=== PATIENT | male | born 2005 | race Caucasian/White ===

== ENCOUNTER 2024-10-27 08:59 | Inpatient (IN) ==
[2024-10-27 10:01] LABS: Hematocrit (blood only) 44.6 % (42.0-52.0); Hemoglobin 15.2 g/dl (14.0-18.0); Immature Granulocytes # (auto) 0.06 K/uL (0.01-0.20); Immature Granulocytes % (auto) 0.5 %; Mean Corpuscular Hemoglobin 30.3 pg (25.0-34.0); Mean Corpuscular Volume 88.8 fL (80.0-100.0); Platelet Count 231 K/uL (130-400); RDW Standard Deviation 42.7 fL (36.4-46.3); Red Blood Count 5.02 M/uL (4.70-6.10); White Blood Count 13.07 K/ul (4.8-10.8)
[2024-10-27] MEDS: SODIUM CHLORIDE 0.9% 1,000 ML IV ONE (10:07)
[2024-10-27] MEDS: ACETAMINOPHEN 1,000 MG/100 ML VIAL IV STA (10:07)
[2024-10-27 10:23] LABS: Alanine Aminotransferase 34.0 U/L (7-52); Albumin Globulin Ratio 1.3 (0.9-2); Alkaline Phosphatase 83.0 U/L (34-104); Anion Gap 6.0 (3-11); Bilirubin,Total 0.8 mg/dl (0.2-1.0); Blood Urea Nitrogen 27.0 mg/dl (6-23); Calcium 9.6 mg/dl (8.6-10.3); Carbon Dioxide 30.0 mmol/L (21-32); Chloride 103.0 mmol/L (98-107); Creatinine Clr Calc Pharmacy 148.4 ml/min; Globulin 3.4 gm/dl (2.5-4.0); Glucose 93.0 mg/dl (70-99(Fasting)); Potassium 4.0 mmol/L (3.5-5.1); Sodium 139.0 mmol/L (136-145); Total Protein 7.7 gm/dl (6.0-8.3)
[2024-10-27] MEDS: OPTIRAY 320 100ml IV ONE (10:27)
--- NOTE | 2024-10-27 10:45 | Emergency Department Note ---
Impression & Plan Peritonsillar abscess ED Provider Note CHIEF COMPLAINT: Sore throat HISTORY OF PRESENTING ILLNESS: Patient is a 19-year-old male presents the emergency department today for complaints of a sore throat that started 2 weeks ago. He was seen at [facility] and put on amoxicillin 500 mg twice daily for 10 days on 10/24/2024. He reports no improvement since starting the antibiotic. He was then seen this morning at [facility] again this morning and was referred here to the emergency department due to having tonsillar hypertrophy and a muffled voice. He denies any breathing difficulties or the feeling of his throat swelling shut. He did take Tylenol last night for the pain but has not taken anything this morning. He denies chest pain, sob, breathing difficulties, abdominal pain, headache, fevers/chills, blood in stool or urine, any recent illness, or any recent travel. REVIEW OF SYSTEMS: See HPI for pertinent positives and pertinent negatives. ALLERGIES: See below MEDICATIONS: See below PAST MEDICAL HISTORY: See below PHYSICAL EXAM: VITALS: Vitals are noted on the nurse's note and reviewed by myself. GENERAL: Non toxic, in no acute distress, non-diaphoretic. SKIN: Capillary refill <2 sec. EYES: PERRLA. EOMI. Conjunctivae without injection, sclerae without icterus. NOSE: Patent without discharge. MOUTH: Erythema is present in the pharynx. Plus or tonsillar hypertrophy on the right on the left. Mucous membranes moist. Uvula midline. Airway patent. Muffled voice is present. No drooling. Good control of secretions. NECK: Positive right anterior cervical adenopathy. No tenderness on palpation. Supple without nuchal rigidity. HEART: Regular rate and rhythm without murmurs gallops or rubs. LUNGS: Clear to auscultation bilaterally without wheezes, rales or rhonchi. No retractions or accessory muscle use. ABDOMEN: Positive bowel sounds x 4. Normal tympanic percussion. Soft, nontender to palpation. NEURO: Patient was alert and oriented. No focal neurological deficits. DIFFERENTIAL DIAGNOSIS: Peritonsillar abscess, pharyngeal edema, strep throat, sepsis, among others. ED COURSE AND MEDICAL DECISION MAKING: HISTORY FROM INDEPENDENT HISTORIAN: History was provided by the patient. MONITOR: Continuous cardiac catheterization technician: Order was placed for continuous cardiac catheterization technician. Patient was placed on the cardiac catheterization technician and continuous pulse ox. Patient was noted to be in normal sinus rhythm at an initial rate of 60 bpm per my interpretation. INTERPRETATION OF LABS: I interpreted the labs with full lab results as below in the lab section of this note. Laboratory results pertinent to the emergent complaint are discussed in the MDM section below. The patient was advised to follow up with their PCP and/or specialist(s) for further outpatient monitoring and management of any abnormal results. INTERPRETATION OF IMAGING: Imaging studies were interpreted by myself and read by radiology as per the imaging section of this note. The patient was advised to follow up with their PCP and/or specialist(s) for further outpatient management of any non-emergent abnormal findings. CHRONIC MEDICAL/SOCIAL CONDITIONS AFFECTING CARE: No social concerns were identified as barriers to patients care. EXTERNAL RECORDS REVIEWED: Patient's express care visits from 10/24/2024 and 10/27/2024. Both related to the sore throat and peritonsillar abscess. ESCALATION OF CARE CONSIDERED: I considered admission on this patient due to failure of outpatient antibiotics and 2.5 cm peritonsillar abscess likely needing drained. CONSULTATIONS: I had a meaningful discussion about this patient with Dr. Sherwood who agrees with my assessment and the treatment plan. I also consulted with Dr. Moon for drainage of the peritonsillar abscess. He will plan to see the patient later this afternoon. I did speak with pharmacist Kusum for antibiotic use of Unasyn versus clindamycin. I consulted with Vanessa Francisco for admission to the hospital under Dr. Rosas and the patient was accepted. SUMMARY: I examined the patient for complaints of sore throat and possible peritonsillar abscess on the right. A physical exam and history were performed. Nursing notes, EMR, and medication list were personally reviewed. CBC showed leukocytosis with a white blood cell count of 13.7. No anemia or thrombocytopenia. CMP showed no emergent findings but a BUN of 27. CT of the soft tissues of the neck showed a 2.5 cm ill-defined echo at glottic mass within the right peritonsillar region with mild mass effect on the adjacent oropharynx. The findings are consistent with a clinically suspected right peritonsillar abscess. The patient was given 1 L normal saline here in the emergency department. He was also given 1 g of Tylenol IV with minor improvement in pain and discomfort. He was given 300 mg of clindamycin IV. He was then given Toradol 30 mg IV with improvement in pain and discomfort. I did consult with Dr. Moon who will plan to see the patient this afternoon. The patient was then accepted for admission by Dr. Rosas. DIAGNOSIS: Peritonsillar abscess right-sided TREATMENT PLAN/DISCHARGE INSTRUCTIONS: Admit to hospitalist services. Past Med/Surg History Problem List (Updated 10/27/24 @ 17:46 by LETTY Mike) Peritonsillar abscess (Acute) Lip laceration Social History Smoking Status: Never smoker Second Hand Exposure: No; Do You Dip or Chew Tobacco: No; Tobacco Cessation Education Requested by Patient: No Hx Alcohol Use: No Hx Substance Use: No Preferred Language: Malian Communication Ability: Effective Separator Operator Required: No Beliefs That Will Affect Care: None Current Living Situation: Other Other Information That Helps Us Care for You: No Feels Safe at Home: Yes Safety Concerns: Afraid for Self Assistive Devices: None Allergies Allergies Allergy/AdvReac Type Severity Reaction Status Date / Time No Known Allergies Allergy Verified 10/27/24 08:36 Home Meds Home Medications Medication Instructions Recorded Confirmed No Known Home Medications 10/24/24 10/27/24 Results & Data (ED) Vital Signs Vital Signs - 24 hr 10/27/24 09:17 10/27/24 11:19 Temperature 36.2 C L Temperature Source Temporal Artery Scan Pulse Rate 58 L Pulse Rate [Right Finger] 45 L Respiratory Rate 18 14 Respiratory Effort / Characteristics Non-Labored Spontaneous Respiratory Depth Normal Respiratory Pattern Regular Blood Pressure 118/58 L Blood Pressure [Left Arm] 116/55 L Blood Pressure Mean 78 Blood Pressure Mean [Left Arm] 75 Pulse Oximetry 100 99 Oxygen Delivery Method Room Air Room Air Sepsis New/Unexplained Change in Mental Status No Sepsis Action Taken by Nursing No Action Required Laboratory Data 10/27/24 09:39 10/27/24 09:39 Lab Results 10/27/24 Range/Units 09:39 WBC 13.07 H (4.8-10.8) K/ul RBC 5.02 (4.70-6.10) M/uL Hgb 15.2 (14.0-18.0) g/dl Hct 44.6 (42.0-52.0) % MCV 88.8 (80.0-100.0) fL MCH 30.3 (25.0-34.0) pg MCHC 34.1 (32.0-36.0) g/dL RDW Std Deviation 42.7 (36.4-46.3) fL RDW Coeff of Cheryl 13.2 (11.5-14.5) % Plt Count 231 (130-400) K/uL MPV 9.7 (9.4-12.4) fL Immature Gran % (Auto) 0.5 % Neut % (Auto) 78.5 % Lymph % (Auto) 13.0 % [place] % (Auto) 7.3 % Eos % (Auto) 0.5 % Baso % (Auto) 0.2 % Neut # (Auto) 10.25 H (1.40-6.50) K/uL Lymph # (Auto) 1.70 (1.20-3.40) K/uL [place] # (Auto) 0.96 H (0.11-0.59) K/uL Eos # (Auto) 0.07 (0.00-0.50) K/uL Baso # (Auto) 0.03 (0.00-0.20) K/uL Immature Gran # (Auto) 0.06 (0.01-0.20) K/uL Sodium 139 (136-145) mmol/L Potassium 4.0 (3.5-5.1) mmol/L Chloride 103 (98-107) mmol/L Carbon Dioxide 30 (21-32) mmol/L Anion Gap 6 (3-11) BUN 27 H (6-23) mg/dl Creatinine 0.89 (0.6-1.4) mg/dl Est Cr Clr Drug Dosing 148.4 ml/min eGFR 125.03 BUN/Creatinine Ratio 30.3 H (10-20) Glucose 93 (70-99(Fasting)) mg/dl Calcium 9.6 (8.6-10.3) mg/dl Total Bilirubin 0.8 (0.2-1.0) mg/dl AST 34 (13-39) U/L ALT 34 (7-52) U/L Alkaline Phosphatase 83 (34-104) U/L Total Protein 7.7 (6.0-8.3) gm/dl Albumin 4.3 (3.4-5.0) gm/dl Globulin 3.4 (2.5-4.0) gm/dl Albumin/Globulin Ratio 1.3 (0.9-2) Administered Medications Lactated Ringer's (Lr) 1,000 mls @ 80 mls/hr IV .[id number] CINTHIA Stop: 10/28/24 13:29 Last Admin: 10/27/24 12:56 Dose: 80 mls/hr Documented By: RADHA Ampicillin Sodium/Sulbactam Sodium (Unasyn) 3,000 mg in 100 mls @ 200 mls/hr IV Q6H CINTHIA Stop: 11/06/24 15:59 Last Infusion: 10/27/24 16:36 Dose: Infused Documented By: Admin: 10/27/24 16:00 Dose: 200 mls/hr Documented By: LISA Ketorolac Tromethamine (Ketorolac Tromethamine 15 Mg/Ml Vial) 10 mg IV Q6H PRN PRN Reason: Pain Stop: 11/01/24 13:44 Last Admin: 10/27/24 16:00 Dose: 10 mg Documented By: LISA Morphine Sulfate (Morphine Sulfate 2 Mg/Ml Carp) 2 mg IV Q6H PRN PRN Reason: Moderate Pain (Scale 4, 5, 6) Stop: 11/10/24 13:44 Last Admin: 10/27/24 15:29 Dose: 2 mg Documented By: BRIAN Discontinued Medications Acetaminophen (Ofirmev) 1,000 mg in 100 mls @ 400 mls/hr IV NOW STA Stop: 10/27/24 09:52 Last Infusion: 10/27/24 10:30 Dose: Infused Documented By: Admin: 10/27/24 10:07 Dose: 400 mls/hr Documented By: STORM Sodium Chloride (Nss) 1,000 mls @ 999 mls/hr IV .Q1H1M ONE Stop: 10/27/24 10:39 Last Infusion: 10/27/24 11:21 Dose: Infused Documented By: Admin: 10/27/24 10:07 Dose: 999 mls/hr Documented By: STORM Clindamycin Phosphate (Cleocin/D5w) 300 mg in 50 mls @ 100 mls/hr IV NOW ONE Stop: 10/27/24 11:28 Last Infusion: 10/27/24 11:57 Dose: Infused Documented By: Admin: 10/27/24 11:22 Dose: 100 mls/hr Documented By: RADHA Ioversol (Optiray 320 100ml) 94 ml IV ONCE ONE Stop: 10/27/24 10:28 Last Admin: 10/27/24 10:27 Dose: 94 ml Documented By: MAY Imaging Data Radiologist's Impression: Soft Tissue Neck CT 10/27/24 09:35 CT OF THE NECK WITH IV CONTRAST CLINICAL HISTORY: peritonsillar abscess COMPARISON STUDY: No previous studies for comparison. TECHNIQUE: Following IV administration of 94 mL of Optiray, helical axial images of the neck were obtained. Sagittal and coronal reconstructions were viewed. Automated exposure control was utilized for the study. A dose lowering technique was utilized adhering to the principles of ALARA. CT DOSE: 499.8 mGy.cm FINDINGS: The visualized portions of intracranial contents are unremarkable in appearance with the exception of a negative cisterna magna. Visualized portions lung apices are unremarkable. No thyroid abnormalities are visualized. Mildly prominent cervical lymph nodes are likely reactive. There is an ill-defined hypoechoic right peritonsillar mass measuring 2.5 cm in diameter. This is consistent with a peritonsillar abscess/phlegmon. There is mass effect on the adjacent airway. No focal cord abnormalities are visualized. The epiglottis appears normal. The prevertebral soft tissues are unremarkable in appearance. There are no findings to indicate jugular vein thrombosis. IMPRESSION: 2.5 cm ill-defined hypoechoic mass within the right peritonsillar region with mild mass effect on the adjacent oropharynx. The findings are consistent with the clinically suspected right peritonsillar abscess/phlegmon. ACT 112: Negative or not required by law. Electronically signed by: Wilbert Rose M.D. 10/27/2024 10:45 AM Discharge Plan Visit Data Chief Complaint: Throat Pain Stated Complaint: THROAT PAIN, REF BY [facility] ED Provider: Hi Sherwood ED Midlevel Provider: Tiffanie Barboza Discharge Problem: Peritonsillar abscess Patient Disposition: Admitted As Inpatient Condition: Good Discharge Instructions Interventions: ED Discharge Assessment Last Done: 10/27/24 15:39
[2024-10-27] MEDS: CLINDAMYCIN/D5W 300 MG/50 ML BAG IV ONE (11:22)
--- NOTE | 2024-10-27 12:02 | History & Physical Report ---
Date of Service October 27, 2024 Assessment & Plan (1) Peritonsillar abscess: Plan Patient is a 19-year-old male without a significant past medical history who presented secondary to right throat pain for 2 weeks found to have a right peritonsillar abscess. #right peritonsillar abscess - right peritonsillar abscess seen on soft tissue neck CT. Nonseptic at time of admissionmild leukocytosis WBC 13.07, VSS, afebrile. Group A strep positive on 10/24. Started on clindamycin in ED, will transition to Unasyn N.p.o. until eval by OMF surgery OMF surgery consulted Received 1L NSS bolus in ED, continue fluid resuscitation with LR at 80 mL/hour IV Tylenol as needed for pain, Toradol prn, morphine prn for pain unrelieved by #1 and #2 - zofran prn Trend CBC VTE ppx: SCDs, low risk Dispo: med surg - possible dc 10/28 Admission and Anticipated Discharge Date Admission Date: 10/27/24 History of Present Illness Chief Complaint: throat pain Primary Care Provider: [facility] Patient is a 19-year-old male without a significant past medical history who presented secondary to right throat pain for 2 weeks found to have a right peritonsillar abscess. Patient seen at bedside. He stated he has had throat pain for a week but it has been more severe over the weekend. He went to [facility] urgent care on 10/24 and tested positive for strep and was placed back on amoxicillin. They noted that he was having difficulty swallowing, muffled voice, and difficulty opening his mouth. He has been able to tolerate p.o. intake until today 10/27. He denies any fevers, chills, nausea, vomiting, chest pain, shortness of breath, drainage from abscess. He denies nicotine use. He socially drinks alcohol. He denies any significant past medical history including asthma or cardiac abnormalities. He is on no home medications. He wishes to be full code. He denies any allergies to antibiotics Allergies Allergy/AdvReac Type Severity Reaction Status Date / Time No Known Allergies Allergy Verified 10/27/24 08:36 Home Medications Medication Instructions Recorded Confirmed Type amoxicillin 500 mg tablet 500 mg PO BID #2 tabs 10/28/24 Rx hydrocodone 5 mg-acetaminophen 325 1 tab PO Q4H PRN pain #10 tabs 10/28/24 Rx mg tablet ibuprofen 800 mg tablet 800 mg PO Q8H PRN pain #15 tabs 10/28/24 Rx oxycodone 5 mg tablet 5 mg PO Q6H PRN breakthrough pain 10/28/24 Rx #14 tabs Past Med/Surg History Problem List Peritonsillar abscess (Acute) Lip laceration Surgical History (Updated 10/28/24 @ 16:04 by Cailin Chavez RN) History of incision and drainage (10/28/24) Right Peritonsillar Incision and Drainage(Right) - Kash Moon DMD Social History Smoking Status: Never smoker Second Hand Exposure: No; Do You Dip or Chew Tobacco: No; Hx Alcohol Use: No Hx Substance Use: No Preferred Language: Azeri Communication Ability: Effective Director Of Global Marketing Required: No Beliefs That Will Affect Care: None Current Living Situation: Other Feels Safe at Home: Yes Assistive Devices: None Review of Systems Review of Systems: see HPI Physical Exam Physical Exam: The patient is awake, alert and oriented 3, well developed and well nourished, normocephalic and atraumatic, in no acute distress. Non-toxic appearing. HEENT- EOMI, mucous membranes moist, swelling to right peritonsillar region. Hearing grossly intact. Heart-normal S1 and S2. No murmurs, rubs or gallops. Lungs-clear bilaterally, no respiratory distress, no accessory muscle use. Abdomen-normal bowel sounds and soft. No ascites noted. Non-tender. Extremities- no clubbing, cyanosis, or edema. Rheumatologic-normal range of motion. Psychiatric-normal affect. Results & Data Results & Data Vital Signs (Past 12 Hours) Vital Signs Temp Pulse Pulse Resp BP BP Pulse Ox 10/27/24 11:19 45 L 14 116/55 L 99 10/27/24 09:17 36.2 C L 58 L 18 118/58 L 100 O2 Del Method 10/27/24 11:19 Room Air 10/27/24 09:17 Room Air Laboratory Results Reviewed CBC and CMP Diagnostic Findings reviewed soft tissue neck CT Medications Administered EDclindamycin IV, 1L NSS bolus, 1G IV Tylenol Code Status & VTE Plan Code Status full code VTE Prophylaxis Plan VTE Prophylaxis will be ordered: Yes Supervising Physician Co-Signing Physician Notes During face to face encounter, I obtained a history and physical examination, discussed plan of care with patient and answered any questions. I discussed plan of care with ERIKA Van. I reviewed above note and agree with it except for the following: Patient will be admitted for peritonsillar abscess. will need ENT, Placed on IV antibiotics and IV pain medicine. PG Care Time/CCT Total # of Minutes Spent Total Time Spent with Patient: Total time spent is greater than 50% in coordination of care (as documented) at patient's floor/unit and/or counseling patient: Coding Level of Care Code 06258 INT INP/OBS CARE 3MIN Diagnoses Peritonsillar abscess J36
[2024-10-27] MEDS: LACTATED RINGER'S 1,000 ML IV SCH (12:56)
[2024-10-27] MEDS ORDERED: ONDANSETRON INJ 2 MG/ML 2 ML VIAL IV PRN (13:45)
[2024-10-27] MEDS ORDERED: MoRPHine SULFATE 4 MG/ML 1 ML CARP\\VIAL IV PRN (13:45)
[2024-10-27] MEDS: MoRPHine SULFATE 2 MG/ML CARP IV PRN (15:29)
[2024-10-27] MEDS: KETOROLAC TROMETHAMINE 15 MG/ML VIAL IV PRN (16:00)
[2024-10-27] MEDS: AMPICILLIN/SULBACTAM SOD 3,000 MG/100 ML BAG IV SCH (16:00)
--- NOTE | 2024-10-27 17:33 | Oral/Maxillofacial Consult ---
Date of Consultation October 27, 2024 Assessment & Plan (1) Peritonsillar abscess: History of Present Illness Attending Physician: Shane Rosas History of Present Illness Oral Maxillofacial Surgery Exam Patient is a 19-year-old male presents the emergency department today for complaints of a sore throat that started 2 weeks ago. He was seen at [facility] and put on amoxicillin 500 mg twice daily for 10 days on 10/24/2024. He reports no improvement since starting the antibiotic. He was then seen this morning at [facility] again this morning and was r eferred here to the emergency department due to having tonsillar hypertrophy and a muffled voice. He denies any breathing difficulties or the feeling of his throat swelling shut. He did take Tylenol last night for the pain but has not taken anything this morning. He denies chest pain, sob, breathing difficulties, abdominal pain, headache, fevers/chills, blood in stool or urine, any recent illness, or any recent travel. Present Complaint: I have pain/swelling/ from my infected right tonsil abscess Symptoms have been ongoing for a while. 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 Oral Exam: Finding--swollen right POULTRY HUSBANDRY TEACHER hard and firm will most likely need I&D tomorrow Feeling better with hydration and IV antibiotics Imaging: CT OF THE NECK WITH IV CONTRAST CLINICAL HISTORY: peritonsillar abscess FINDINGS: The visualized portions of intracranial contents are unremarkable in appearance with the exception of a negative cisterna magna. Visualized portions lung apices are unremarkable. No thyroid abnormalities are visualized. Mildly prominent cervical lymph nodes are likely reactive. There is an ill-defined hypoechoic right peritonsillar mass measuring 2.5 cm in diameter. This is consistent with a peritonsillar abscess/phlegmon. There is mass effect on the adjacent airway. No focal cord abnormalities are visualized. The epiglottis appears normal. The prevertebral soft tissues are unremarkable in appearance. There are no findings to indicate jugular vein thrombosis. IMPRESSION: 2.5 cm ill-defined hypoechoic mass within the right peritonsillar region with mild mass effect on the adjacent oropharynx. The findings are consistent with the clinically suspected right peritonsillar abscess/phlegmon. Soft tissue: The floor of the mouth, tongue,general oral exam is all WNL The soft palate and posterior pharyngeal area generalized swelling with no airway or uvula deviation noted Oral Care: Overall oral care is good Head/Neck exam: Neck is supple, FROM, Able to extend and flex neck w/o difficulty, no masses, no abnormalities, no airway issues, no evidence of sleep apnea. Treatment Plan: IV antibiotics, hydration, steroids, mouth rinse, diet, NPO tonight Set up with general anesthesia in hospital due to complexity of the procedure for tomorrow afternoon I reviewed the treatment plan and consent with the patient and mother Understanding was expressed. Time was given for questions regarding the surgery, risks and post op care. Discussed alternative to treatment--procedure as planned, Do not do surgery Risks discussed: Bleeding,Pain,swelling,infection, delayed healing, nerve injury to roof of the mouth TMJ, jaw stiffness, change in bite (rare), ear pain (referred). Sinus problems like fistula or infection. Need for future tonsil removal of recurrence of POULTRY HUSBANDRY TEACHER Home care reviewed: follow up care with Dr Moon. Surgery to be set up tomorrow in [place] Allergies Allergy/AdvReac Type Severity Reaction Status Date / Time No Known Allergies Allergy Verified 10/27/24 08:36 Home Medications Medication Instructions Recorded Confirmed Type No Known Home Medications 10/24/24 10/27/24 History Patient History Social History Smoking Status: Never smoker Second Hand Exposure: No; Do You Dip or Chew Tobacco: No; Tobacco Cessation Education Requested by Patient: No Hx Alcohol Use: No Hx Substance Use: No Preferred Language: Jamaican Communication Ability: Effective Carpenter Cradle And Dolly Required: No Beliefs That Will Affect Care: None Current Living Situation: Other Other Information That Helps Us Care for You: No Feels Safe at Home: Yes Safety Concerns: Afraid for Self Assistive Devices: None Results & Data Vital Signs (Past 12 Hours) Vital Signs Temp Pulse Pulse Pulse Resp BP BP 10/27/24 16:08 36.4 C L 74 16 114/68 10/27/24 15:23 57 L 18 132/66 10/27/24 13:23 54 L 10/27/24 12:55 52 L 12 116/70 10/27/24 11:19 45 L 14 116/55 L 10/27/24 09:17 36.2 C L 58 L 18 118/58 L Pulse Ox O2 Del Method 10/27/24 16:08 95 Room Air 10/27/24 15:23 100 Room Air 10/27/24 13:23 10/27/24 12:55 100 Room Air 10/27/24 11:19 99 Room Air 10/27/24 09:17 100 Room Air PG Care Time/CCT Total # of Minutes Spent Total Time Spent with Patient: Total time spent is greater than 50% in coordination of care (as documented) at patient's floor/unit and/or counseling patient: Coding Level of Care Code 08225 OFFICE CONSULT LVL Diagnoses Peritonsillar abscess J36 CPT Codes Drainage of Tonsil Abscess - 72654 ([id number])
[2024-10-27] MEDS: dexAMETHasone 6 MG in SYRINGE 0 ML IV SCH (17:46)
[2024-10-27] MEDS ORDERED: ACETAMINOPHEN 1,000 MG/100 ML VIAL IV PRN (18:00)
[2024-10-27] MEDS: MELATONIN 3 MG TAB PO PRN (23:02)
[2024-10-28 06:01] LABS: Hematocrit (blood only) 43.2 % (42.0-52.0); Hemoglobin 15.3 g/dl (14.0-18.0); Immature Granulocytes # (auto) 0.04 K/uL (0.01-0.20); Immature Granulocytes % (auto) 0.3 %; Mean Corpuscular Hemoglobin 31.2 pg (25.0-34.0); Mean Corpuscular Volume 88.0 fL (80.0-100.0); Platelet Count 257 K/uL (130-400); RDW Standard Deviation 40.6 fL (36.4-46.3); Red Blood Count 4.91 M/uL (4.70-6.10); White Blood Count 13.35 K/ul (4.8-10.8)
[2024-10-28 06:17] LABS: Anion Gap 6.0 (3-11); Blood Urea Nitrogen 17.0 mg/dl (6-23); Calcium 9.5 mg/dl (8.6-10.3); Carbon Dioxide 28.0 mmol/L (21-32); Chloride 103.0 mmol/L (98-107); Creatinine Clr Calc Pharmacy 165.1 ml/min; Glucose 119.0 mg/dl (70-99(Fasting)); Potassium 4.4 mmol/L (3.5-5.1); Sodium 137.0 mmol/L (136-145)
[2024-10-28] MEDS ORDERED: MIDAZOLAM HCL 1 MG/ML 2ML VIAL ONE (12:54)
[2024-10-28] MEDS ORDERED: DEXAMETHASONE SOD INJ 4 MG/ML VIAL ONE (12:57)
[2024-10-28] MEDS ORDERED: PROPOFOL IV EMULSION 10 MG/ML 20 ML VIAL IV ONE (12:57)
[2024-10-28] MEDS ORDERED: ONDANSETRON INJ 2 MG/ML 2 ML VIAL ONE ×2 (12:57→15:00)
[2024-10-28] MEDS ORDERED: LIDOCAINE 2% 2 ML VIAL/AMP(20MG/ML) INFIL ONE (12:57)
[2024-10-28] MEDS ORDERED: ROCURONIUM BROMIDE 10 MG/ML 5 ML VIAL IV ONE (12:57)
[2024-10-28] MEDS ORDERED: ATROPINE SULFATE 0.1 MG/ML 10ML SYR IV PRN (13:40)
[2024-10-28] MEDS ORDERED: HYDROmorphone INJ 1 MG/ML SYRINGE IV PRN (13:40)
[2024-10-28] MEDS ORDERED: ONDANSETRON INJ 2 MG/ML 2 ML VIAL IV PRN (13:40)
--- NOTE | 2024-10-28 13:40 | Anesthesiology Consultation ---
Date of Service October 28, 2024 Assessment & Plan ASA ASA1 Proposed Anesthesia Anesthesia Type: General Risk / Benefits Reviewed With: PT / POA / Parent / Guardian, Accepts Plan and Informed Consent Obtained History Surgery Operation Date: 10/28/24 07:00 Proposed Procedures p Right Peritonsillar Incision and Drainage - Kash Moon, DMD Height/Weight Height: 6 ft 1 in Weight: 92 kg Allergies Allergy/AdvReac Type Severity Reaction Status Date / Time No Known Allergies Allergy Verified 10/27/24 08:36 Medications Home Medications Medication Instructions Recorded Confirmed Last Taken No Known Home Medications 10/24/24 10/27/24 Unknown Active Medications Generic Name Dose Route Start Last Admin Trade Name Freq PRN Reason Stop Dose Admin Ampicillin Sodium/Sulbactam Sodium 3,000 mg in 100 mls @ 200 mls/hr 10/27/24 16:00 10/28/24 11:19 Unasyn IV 11/06/24 15:59 Infused Q6H CINTHIA Infusion Dexamethasone 6 mg/ Syringe 1.5 mls @ 1 mls/min 10/27/24 17:30 10/27/24 17:46 IV 11/26/24 17:29 1 mls/min Q24H CINTHIA Administration Ketorolac Tromethamine 10 mg 10/27/24 13:45 10/27/24 21:15 Ketorolac Tromethamine 15 Mg/Ml Vial IV 11/01/24 13:44 10 mg Q6H PRN Administration Pain Melatonin 3 mg 10/27/24 22:51 10/27/24 23:02 Melatonin 3 Mg Tab PO 11/26/24 22:50 3 mg HS PRN Administration Sleep Morphine Sulfate 2 mg 10/27/24 13:45 10/27/24 15:29 Morphine Sulfate 2 Mg/Ml Carp IV 11/10/24 13:44 2 mg Q6H PRN Administration Moderate Pain (Scale 4, 5, 6) NPO Date Last Intake of Fluids: 10/27/24 Time Last Intake of Fluids: 19:00 Date Last Intake of Solids: 10/27/24 Time Last Intake of Solids: 19:00 Exercise / Class Metabolic Activity II 4-5 Yardwork/Stairs/Walk up hill Past Anesthesia History No Hx of Anesthesia Complications and No Family Hx of Anesthesia Complications History of PONV No Hx of PONV and No Hx of Motion Sickness Social History Smoking Status: Never smoker Do You Dip or Chew Tobacco: No Hx Alcohol Use: No Hx Substance Use: No Review of Systems denies fever/cough/ colds/ chest pain/ SOB/ NEVAEH denies NEVAEH Physical Exam Vital Signs Last Vital Signs Temp 36.6 C 10/28/24 13:19 Pulse 78 10/28/24 13:19 Resp 20 10/28/24 13:19 BP 123/62 10/28/24 13:19 Pulse Ox 99 10/28/24 13:19 O2 Del Method Room Air 10/28/24 13:19 ENMT Mouth: no TMJ abnormality and no dentition abnormality Thyromental Distance: > or= 3.5 Finger Breadths Mallampati Class: II Neck neck extension not limited Respiratory normal respiratory effort; no respiratory distress Auscultation: lungs clear to auscultation bilaterally Cardiovascular Rate/Rhythm: regular rate and regular rhythm Neurologic moves all extremities Psychiatric Orientation: alert and oriented x 3 Testing Laboratory Results 10/28/24 05:21 10/28/24 05:21
--- NOTE | 2024-10-28 14:25 | History & Physical Bridge Note ---
Date of Service October 28, 2024 History & Physical Bridge Note I have examined the patient, reviewed the History & Physical and in the interval since the performance of the History & Physical I have noted the following changes of clinical significance: no changes noted
[2024-10-28] MEDS ORDERED: DexMEDEtomidine HCL IV 100 MCG/ML VIAL IV ONE (14:50)
[2024-10-28] MEDS ORDERED: GLYCOPYRROLATE 0.2 MG/ML VIAL ONE (15:00)
[2024-10-28] MEDS ORDERED: SUGAMMADEX SODIUM 200 MG/2 ML VIAL IV ONE (15:02)
[2024-10-28] MEDS: CHLORHEXIDINE GLUCONATE 0.12% 480 ML MT PRN (15:05)
[2024-10-28] MEDS: BUPIVACAINE/EPINEPHRINE 0.5% 1:200,000 1.8 ML CARP ONE (15:13)
[2024-10-28] MEDS ORDERED: ACETAMINOPHEN 500 MG TAB PO PRN (15:32)
[2024-10-28] MEDS ORDERED: KETOROLAC 30 MG/ML VIAL IV PRN (15:32)
--- NOTE | 2024-10-28 15:45 | Post Operative Brief Note ---
PG Immediate Post Op with CF Date of Surgery October 28, 2024 Pre & Post Diagnosis Operation Date: 10/28/24 07:00 Pre-Op Diagnosis: Right peritonsillar abscess Post-Op Diagnosis: Right peritonsillar abscess I identified the patient and participated in the time-out.: Yes Procedure Operation Date: 10/28/24 07:00 Actual Procedures p Right Peritonsillar Incision and Drainage(Right) - Kash Moon, GONZALES Surgeon Kash Moon, GONZALES Mandrel Maker none Estimated Blood Loss 0 Findings Consistent with Post-Op Diagnosis acute CONVENTION SERVICES DIRECTOR right side Specimens Specimen Description: 1. Right peritonsillar abscess culture Complications grossly infected CONVENTION SERVICES DIRECTOR right Disposition Accompanied Patient To Recovery: Yes
[2024-10-28 16:01] VITALS: TEMP 98.2
--- NOTE | 2024-10-28 16:06 | Anesthesiology Progress Note ---
Date of Service October 28, 2024 Anesthesia Post Procedure Vital Signs Vital Signs: Temp Pulse Pulse Pulse Resp BP Pulse Ox 10/28/24 16:00 36.8 C 65 18 136/64 95 10/28/24 15:50 55 L 12 117/67 96 10/28/24 15:40 54 L 12 128/74 100 10/28/24 15:30 67 12 126/68 100 10/28/24 15:22 36.1 C L 60 12 136/73 100 10/28/24 13:19 36.6 C 78 20 123/62 99 10/28/24 07:55 36.5 C 55 L 18 115/62 98 10/27/24 22:41 36.5 C 51 L 16 101/54 L 97 10/27/24 16:08 36.4 C L 74 16 114/68 95 O2 Del Method O2 Flow Rate 10/28/24 16:00 Room Air 10/28/24 15:50 Room Air 10/28/24 15:40 Oxymask 2 10/28/24 15:30 Oxymask 4 10/28/24 15:22 Oxymask 9 10/28/24 13:19 Room Air 10/28/24 07:55 Room Air 10/27/24 22:41 Room Air 10/27/24 16:08 Room Air Pain Intensity Throat: Pain Intensity: 4 Right Throat: Pain Intensity: 4 Transfer of Care Handoff Completed per policy Notes Mental Status: alert / awake / arousable Patient Amnestic to Procedure: Yes Nausea / Vomiting: adequately controlled Pain: adequately controlled Airway Patency, RR, SpO2: stable & adequate BP & HR: stable & adequate Hydration State: stable & adequate Anesthetic Complications: no major complications apparent and Pt Satisfied with anesthetic care
[2024-10-28 17:23] VITALS: BP 118/65; PULSE 55; RESP 16; O2SAT 98
--- NOTE | 2024-10-28 17:50 | Discharge Summary ---
Discharge Summary Date of Service October 28, 2024 Principal Dx & Hospital Course #1 = Principal Diagnosis (1) Peritonsillar abscess: Plan Patient is a 19-year-old male without a significant past medical history who presented secondary to right throat pain for 2 weeks found to have a right peritonsillar abscess. #right peritonsillar abscess - right peritonsillar abscess seen on soft tissue neck CT. Nonseptic at time of admissionmild leukocytosis WBC 13.07, VSS, afebrile. Group A strep positive on 10/24. Started on clindamycin in ED, transitioned to Unasyn - will discharge on amoxicillin, oxycodone, and ibuprofen. will followup with Dr. Moon in 7-10 days Admission HPI Per Admitting Provider Patient is a 19-year-old male without a significant past medical history who presented secondary to right throat pain for 2 weeks found to have a right peritonsillar abscess. Patient seen at bedside. He stated he has had throat pain for a week but it has been more severe over the weekend. He went to [facility] [address] urgent care on 10/24 and tested positive for strep and was placed back on amoxicillin. They noted that he was having difficulty swallowing, muffled voice, and difficulty opening his mouth. He has been able to tolerate p.o. intake until today 10/27. He denies any fevers, chills, nausea, vomiting, chest pain, shortness of breath, drainage from abscess. He denies nicotine use. He socially drinks alcohol. He denies any significant past medical history including asthma or cardiac abnormalities. He is on no home medications. He wishes to be full code. 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 Condition on Discharge: Good Activity: Resume your previous activity Lifting: Gradually increase as tolerated Bathing: No limitations Exercise/Sports: Gradually increase as tolerated Driving/Machine Use: Resume 1 day after discharge Weightbearing: Full weightbearing Non-emergency contact: Surgeon Call non-emergency contact if: you have any medication questions, your symptoms worsen, your temperature is above 101.5, your wound has increased redness, your wound has increased drainage and your wound pain has increased Follow-up/Referrals: Kash Moon, GONZALES [Physician] - [facility] [Primary Care Provider] - Diet: Regular, Full liquid and Clear liquid Diet Texture: Easy to Chew Addtl Attending Provider Instructions: ADDITIONAL ACTIVITY RECOMMENDATIONS: * [place] teeth after every meal. It is very important to keep your mouth clean to prevent infection. * Starting tonight rinse with the Peridex as directed then 2 x a day * it is very important to keep well hydrated, this prevents fever * Take antibiotics for the 7 days * take the pain Meds as needed but Tylenol/Motrin are better * diet as tolerated SPECIAL CARE INSTRUCTIONS: *It is not uncommon that between day 2-4 that your swelling will be at its worst this is very normal, do not be alarmed. * Keep ice on the side of your face for the next 24 to 36 hours. This will help keep the swelling down. * Tomorrow start rinsing your mouth with 1/2 teaspoon salt in 8 ounces warm water. This rinse should be used every 4-6 hours. * You may experience slight nausea. To prevent this, never take your medication on an empty stomach. If nauseated, take small sips of francisco abi until you feel better; then you may start on applesauce and toast. * A certain amount of bleeding is to be expected. It is often possible to control mild oozing by placing folded gauze over the area and biting down for 30 minutes. If you are unable to control excessive bleeding, call Dr Moon at [phone] * You may experience some discomfort for a few days. If pain or swelling increases, Call Dr Moon * Return to the office for a follow up check up on: Please call office to arrange a follow up for 7-10 days * office address--[address] phone # [phone] Pending Studies at Discharge: Yes Studies:: C and S Stand-Alone Forms: My [employer], Smoking Cessation Medications and DC Order Prescriptions: New ibuprofen 800 mg tablet 800 mg PO Q8H PRN (Reason: pain) Qty: 15 0RF Rx Instructions: Take on a full stomach amoxicillin 500 mg tablet 500 mg PO BID Qty: 2 0RF Rx Instructions: this will extend you home dose by an extra day. oxycodone 5 mg tablet 5 mg PO Q6H PRN (Reason: breakthrough pain) Qty: 14 0RF Continued hydrocodone-acetaminophen 5-325 mg tablet 1 tab PO Q4H PRN (Reason: pain) Qty: 10 0RF Discharge Orders: Discharge Order (Routine); Ordered 10/28/24 Ordered By: Shane Shoemaker/Other Patient Handouts: Taking NSAIDs Safely, Peritonsillar Abscess Admission Data Admit Date/Time: 10/27/24 12:24 Attending Provider: Shane Rosas Admit Provider: Shane Rosas Primary Care Provider: [facility] Other Providers: Shane Rosas; Kash Moon Other Interventions: Discharge Summary Assessment (RN) Last Done: 10/28/24 17:52 Hospital Stay Data Consultations 10/27/24 12:11 ED Decision to Admit Stat 10/27/24 12:20 Consult Oromaxillofacial Surgery Routine Procedures Performed Operation Date: 10/28/24 07:00 Actual Procedures p Right Peritonsillar Incision and Drainage(Right) - Kash Moon, DMD Diagnostic Imagining Performed 10/27/24 09:35 CT soft tissue neck w con Stat Pending Results Patient Have Any Pending Studies at Discharge: Yes Discharge Instructions Given to Patient (Per Discharging Provider) ADDITIONAL ACTIVITY RECOMMENDATIONS: * [place] teeth after every meal. It is very important to keep your mouth clean to prevent infection. * Starting tonight rinse with the Peridex as directed then 2 x a day * it is very important to keep well hydrated, this prevents fever * Take antibiotics for the 7 days * take the pain Meds as needed but Tylenol/Motrin are better * diet as tolerated SPECIAL CARE INSTRUCTIONS: *It is not uncommon that between day 2-4 that your swelling will be at its worst this is very normal, do not be alarmed. * Keep ice on the side of your face for the next 24 to 36 hours. This will help keep the swelling down. * Tomorrow start rinsing your mouth with 1/2 teaspoon salt in 8 ounces warm water. This rinse should be used every 4-6 hours. * You may experience slight nausea. To prevent this, never take your medication on an empty stomach. If nauseated, take small sips of francisco abi until you feel better; then you may start on applesauce and toast. * A certain amount of bleeding is to be expected. It is often possible to control mild oozing by placing folded gauze over the area and biting down for 30 minutes. If you are unable to control excessive bleeding, call Dr Moon at [phone] * You may experience some discomfort for a few days. If pain or swelling increases, Call Dr Moon * Return to the office for a follow up check up on: Please call office to arrange a follow up for 7-10 days * office address--[address] phone # [phone] Total Time Total Time Spent Total Time Spent (In Minutes): 32 Coding Level of Care Code 60867 INP/OBS DISCH >30 MIN Diagnoses Peritonsillar abscess J36
--- NOTE | 2024-11-07 16:53 | Operative Report ---
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 A time out was take for patient ID, antibiotics, equipment and position verification once all agreed the procedure began. Local anesthesia using Marcaine with a vasoconstrictor ( 1.8 ml per site) given into right soft palate and around the swollen tonsil A throat pack was placed after the oral cavity was irrigated with saline. Once a surgical level of anesthesia was obtained and the local anesthesia was given time for the blocks the surgery was started. I turned my attention to the infection which was located in right posterior soft palate and tonsil area The right tonsil was grossly infected and enlarged and was touching the uvulae. Incision and Drainage Right Peritonsillar abscess CPT 02790 Using a 15 blade an incision was made lateral to the swollen tonsil fold and medial to the very necrotic and swollen tonsil. Once the incision was made a lot of pus extruded from the site. This drainage was cultured for anaerobic and aerobic bacteria. A curved hemostat was carefully placed into the infected mariah tonsil space along the medial and lateral aspects of the tonsil Some further drainage was now allowed to escape. I palpated the tonsil and soft palate and lateral area and no further drainage was expressed. The area was irrigated with at least 100 ml of NS solution. Given all the manipulation and the necrotic nature of of the large swollen right tonsil the tissue was very irritated and required a few 3-0 chronic sutures be placed to prevent any possibility of post op bleeding. Once this was completed there was no bleeding or drainage. I also inspected the left tonsil, it was large but did not show any signs of abscess. I inspected the sites to insure all bleeding was controlled. I removed the throat pack and suctioned the throat. . All instrument and sponge count was correct. The patient was allowed to awake from the anesthesia. Once full awake the anesthesia tube was removed and the patient was taken to the recovery room with all vital sign stable. The patient tolerated the surgery very well. I will follow the patient in my office, Rx and instructions will be given upon discharge. I attest to the content of the Intraoperative Record and any orders documented therein. Any exceptions are noted below.
== END 2024-10-28 18:34 | disposition home or self-care (01) | DRG 145 ==
LOC: SUATTDRO → ED 08:59 → EDINP 12:24 → 3E 15:39